=== PATIENT | male | born 2000 | race African-American/Black ===

== ENCOUNTER 2021-10-12 00:49 | Emergency (ER) | payer MEDICAID ==
[~2021-10-12] VITALS: Ht 180.3 cm; Wt 62.0 kg
[2021-10-12 00:56] VITALS: BP 143/90
[2021-10-12] MEDS ORDERED: CEFTRIAXONE SODIUM 250 MG/VIAL IM ONE (03:45)
[2021-10-12] MEDS ORDERED: DOXY100T2 MT (03:49)
[2021-10-12] MEDS ORDERED: IBUP-2028 MT (03:49)
== END 2021-10-12 04:23 | disposition home or self-care (01) ==
LOC: ER 00:49
DX: R09.82 Postnasal drip (principal); J02.9 Acute pharyngitis, unspecified; A64 Unspecified sexually transmitted disease
CPT/HCPCS: 96372; 99283; J0696